=== PATIENT | male | born 1975 | race Caucasian/White ===

== ENCOUNTER 2018-12-09 07:44 | Emergency (ER) | payer BC, OTHER ==
[~2018-12-09] VITALS: Ht 193 cm; Wt 128.0 kg
[2018-12-09 07:46] VITALS: Ht 193 cm; Wt 128.0 kg
[2018-12-09] MEDS ORDERED: KETOROLAC 30 MG INJ IV STA (08:04)
[2018-12-09] MEDS ORDERED: SOD CHLORIDE 0.9% 1,000 ML IV STA (08:04)
[2018-12-09] MEDS ORDERED: IBUP-1542 PO (10:13)
[2018-12-09] MEDS ORDERED: CIPR500T4 PO (10:13)
[2018-12-09] MEDS ORDERED: HYDR-4011 PO (10:13)
[2018-12-09 10:22] VITALS: BP 134/77; PULSE 74; RESP 18
--- NOTE | 2018-12-09 16:50 | ERD ---
ER Documentation Chief Complaint Chief Complaint ap x 3 hrs HPI This is a 43-year-old male with no significant past medical history presents to the ED complaining of sudden onset sharp left flank pain since 4:30 AM. Patient states pain has been waxing and waning since onset. He states pain started at his left flank and has radiated towards his left lower quadrant. He denies any nausea or vomiting. Denies any fevers or chills. Denies any urinary symptoms. Denies any chest pain or shortness of breath. He states he is currently on a 10-day course of amoxicillin for sinusitis. He denies any other symptoms. He states he has significant family history of kidney stones. He denies any known history of kidney stones himself. No other symptoms. ROS All systems reviewed and are negative except as per history of present illness. Medications Home Meds Active Scripts Hydrocodone/Acetaminophen ([place] 5-325 Tablet) 1 Each Tablet, 1 EACH PO Q4 for PAIN for 10 Days, TAB Prov:DISHIGRIKIAN,ZEPYUR N PA-C 12/09/18 Ibuprofen* (Motrin*) 600 Mg Tab, 600 MG PO Q6H PRN for PAIN AND OR ELEVATED TEMP, #30 TAB Prov:DISHIGRIKIAN,ZEPYUR N PA-C 12/09/18 Ciprofloxacin Hcl* (Ciprofloxacin Hcl*) 500 Mg Tablet, 500 MG PO BID for 7 Days, TAB Prov:DISHIGRIKIAN,ZEPYUR N PA-C 12/09/18 Allergies Allergies: Coded Allergies: No Known Allergy (Unverified , 12/09/18) PMhx/Soc Medical and Surgical Hx: pt denies Medical Hx, pt denies Surgical Hx Hx Substance Use: Yes (smoke pot) Hx Tobacco Use: No Physical Exam Vitals Vital Signs Date Temp Pulse Resp B/P (MAP) Pulse Ox O2 O2 Flow FiO2 Time Delivery Rate 12/09/18 98.2 74 18 134/77 96 Room Air 10:22 (96) 12/09/18 97.7 69 18 142/73 99 07:46 (96) Physical Exam Const: No acute distress Head: Atraumatic Eyes: Normal Conjunctiva ENT: Normal External Ears, Nose and Mouth. Neck: Full range of motion. No meningismus. Resp: Clear to auscultation bilaterally Cardio: Regular rate and rhythm, no murmurs Abd: Soft, + mild left lower quadrant tenderness palpation. Non distended. Normal bowel sounds. No rebound, no guarding. Skin: No petechiae or rashes Back: No midline. + Left CVA tenderness. Ext: No cyanosis, or edema Neur: Awake and alert Psych: Normal Mood and Affect Result Diagram: 12/09/18 0815 12/09/18 0815 Results 24 hrs Laboratory Tests Test 12/09/18 08:15 White Blood Count 10.3 10^3/ul Red Blood Count 5.10 10^6/ul Hemoglobin 15.7 g/dl Hematocrit 46.0 % Mean Corpuscular Volume 90.2 fl Mean Corpuscular Hemoglobin 30.8 pg Mean Corpuscular Hemoglobin Concent 34.1 g/dl Red Cell Distribution Width 12.6 % Platelet Count 267 10^3/UL Mean Platelet Volume 9.7 fl Immature Granulocytes % 0.800 % Neutrophils % 68.9 % Lymphocytes % 20.1 % Monocytes % 6.9 % Eosinophils % 2.3 % Basophils % 1.0 % Nucleated Red Blood Cells % 0.0 /100WBC Immature Granulocytes # 0.080 10^3/ul Neutrophils # 7.1 10^3/ul Lymphocytes # 2.1 10^3/ul Monocytes # 0.7 10^3/ul Eosinophils # 0.2 10^3/ul Basophils # 0.1 10^3/ul Nucleated Red Blood Cells # 0.0 10^3/ul Urine Color YELLOW Urine Clarity CLOUDY Urine pH 5.0 Urine Specific [place] 1.021 Urine Ketones NEGATIVE mg/dL Urine Nitrite NEGATIVE mg/dL Urine Bilirubin NEGATIVE mg/dL Urine Urobilinogen NEGATIVE mg/dL Urine Leukocyte Esterase NEGATIVE Greg/ul Urine Microscopic RBC > 182 /HPF Urine Microscopic WBC 17 /HPF Urine Yeast (Budding) MANY /HPF Urine Hemoglobin 3+ mg/dL Urine Glucose NEGATIVE mg/dL Urine Total Protein 1+ mg/dl Sodium Level 141 mmol/L Potassium Level 4.5 mmol/L Chloride Level 104 mmol/L Carbon Dioxide Level 29 mmol/L Anion Gap 8 Blood Urea Nitrogen 19 mg/dl Creatinine 1.24 mg/dl Est Glomerular Filtrat Rate mL/min > 60 mL/min Glucose Level 121 mg/dl Calcium Level 10.0 mg/dl Total Bilirubin 0.5 mg/dl Direct Bilirubin 0.00 mg/dl Indirect Bilirubin 0.5 mg/dl Aspartate Amino Transf (AST/SGOT) 34 IU/L Alanine Aminotransferase (ALT/SGPT) 61 IU/L Alkaline Phosphatase 65 IU/L Total Protein 7.5 g/dl Albumin 4.4 g/dl Globulin 3.10 g/dl Albumin/Globulin Ratio 1.41 Lipase 181 U/L Current Medications Medications Dose Sig/Katheryn Start Time Status Last (Trade) Ordered Route PRN Stop Time Admin Dose Reason Admin Sodium 1,000 ml @ Q1H STAT 12/09/18 DC 12/09/18 Chloride 1,000 mls/hr IV 08:04 12/09/18 08:16 09:03 Ketorolac 30 mg ONCE STAT 12/09/18 DC 12/09/18 Tromethamine IV 08:04 12/09/18 08:16 (Toradol) 08:06 Procedures/MDM LABS CBC: no e/o of systemic infection or severe anemia CMP: no e/o severe acidosis, alkalosis, renal failure, diabetic ketoacidosis, liver disease Lipase: neg for pancreatitis Urine: + Hematuria and pyuria DIAGNOSTIC IMAGING: PROCEDURE: Renal US. CLINICAL INDICATION: Left flank pain TECHNIQUE: Multiple sonographic images of the kidneys were obtained. The images were reviewed on a PACS workstation. COMPARISON: No prior studies are available for comparison. FINDINGS: The right kidney measures 12.1 x 5.5 cm. The left kidney measures 13.2 x 7.0 cm. Kidneys are of normal contour and echogenicity with no calculus or mass. There is mild left hydronephrosis. No abnormal perinephric or pararenal mass or fluid collection is seen. No bladder mass or stone is visualized. Ureteral jets were not documented. IMPRESSION: Mild left hydronephrosis. Ureteral jets are not documented. Question ureteral obstruction . Consider CT or focused bladder ultrasound to determine if there is complete obstruction. ED COURSE: The patient was given IV fluids, Toradol The medication was well tolerated and the patient had market improvement in symptoms. The patient remained stable throughout ED course. MEDICAL DECISION MAKIN-year-old male presents with symptoms consistent with renal colic. CBC, CMP without a evidence of severe infection, sepsis or severe dehydration. UA reveals hematuria as well as pyuria, consistent with nephrolithiasis. Given pyur ia, will treat as an infected stone with abx. He has no fever here. Vital signs are normal. I have low suspicion for sepsis, obstructive uropathy, acute kidney injury, or any other emergent process. Patient is hemodynamically stable and can be discharged with outpatient pain medications as well as PO antibiotics. Strict return precautions were discussed. PRESCRIPTIONS: [place], ibuprofen, ciprofloxacin SPECIALIST FOLLOW UP RECOMMENDED: None Patient has been advised to follow up with primary care in 1-2 days. Departure Diagnosis: Primary Impression: Renal colic Condition: Stable Patient Instructions: Preventing Kidney Stones, Kidney Stone W/ Colic Additional Instructions: Increase your water intake, take the pain medications as needed for any pain. Take the full course of antibiotics for the next 7 days. The stone should pass within 1 week, if you are still having pain after 1 week return here see her primary care provider for further evaluation. Monitor for any worsening pain, fevers, chills, nausea, vomiting, difficulty urinating or any other symptoms. MICHAEL ADAIR PA-C Dec 09, 2018 16:50
== END 2018-12-09 10:25 | disposition home or self-care (01) ==
LOC: FTE 07:44
DX: N23 Unspecified renal colic (principal)
CPT/HCPCS: 36415; 76775; 80053; 81001; 83690; 85025; 96361; 96374; 99285; J1885; J7030